=== PATIENT | female | born 1970 | race Caucasian/White ===

== ENCOUNTER 2023-11-24 17:20 | Emergency (ER) | payer BC ==
[~2023-11-24] VITALS: Ht 175.3 cm; Wt 62.4 kg
[2023-11-24 17:36] VITALS: BP 117/70; PULSE 62; RESP 20; TEMP 97.9; O2SAT 98
[2023-11-24] MEDS ORDERED: BUPR1FIL4 SL (18:56)
[2023-11-24] MEDS ORDERED: ONDA8TAB87 PO (18:56)
[2023-11-24] MEDS ORDERED: CHLO-757 PO (18:56)
[2023-11-24 19:02] VITALS: BP 111/63; PULSE 58; RESP 18; TEMP 98.1; O2SAT 98
== END 2023-11-24 19:02 | disposition home or self-care (01) ==
LOC: MED 17:20
DX: F10.239 Alcohol dependence with withdrawal, unspecified (principal); F19.90 Other psychoactive substance use, unspecified, uncomplicated; I10 Essential (primary) hypertension; F17.200 Nicotine dependence, unspecified, uncomplicated; F12.90 Cannabis use, unspecified, uncomplicated; Z90.49 Acquired absence of other specified parts of digestive tract; Z90.710 Acquired absence of both cervix and uterus; Z98.890 Other specified postprocedural states; Z86.69 Personal history of other diseases of the nervous system and sense organs; Z79.82 Long term (current) use of aspirin; Z79.899 Other long term (current) drug therapy; Y90.9 Presence of alcohol in blood, level not specified
CPT/HCPCS: 99283